=== PATIENT | female | born 1935 | race Caucasian/White ===

== ENCOUNTER 2020-06-27 17:01 | Inpatient (IN) | payer MEDICARE ==
[~2020-06-27 17:01] MED LIST: Iopamidol-370 76% 500 ML 1 ML ONE
[2020-06-27] MEDS ORDERED: Lorazepam 2 MG/ML VIAL ONE (18:09)
[2020-06-27 19:16] LABS: #Monocytes 1.1 thou/uL (0.11-0.59); #Neutrophils 8.8 thou/uL (1.40-6.50); %Basophils 0.3 % (0.0-1.0); %Lymphocytes 9.2 % (21.0-51.0); %Monocytes 10.3 % (0.0-10.0); %Neutrophils 80.2 % (42.0-75.0); Hemoglobin 8.3 g/dL (12.0-16.0); Mean Corpuscular HGB CONC 28.8 g/dL (32.0-36.0); Mean Corpuscular Hemoglobin 21.2 pg (27.0-31.0); Mean Corpuscular Volume 73.7 fL (78.0-98.0); Mean Platelet Volume 10.8 fL (7.4-10.4); Platelet Count 231 thou/uL (130-400); RBC Distribution Width 19.4 % (11.5-14.5); White Blood Cell (WBC) Count 10.9 thou/uL (4.8-10.8)
[2020-06-27 19:22] LABS: INR-International Normal Ratio 1.5; PTT 33.4 sec (22.9-36.1); Prothrombin Time 18.3 sec (12.0-14.7)
[2020-06-27 19:28] LABS: ALT (SGPT) 28 U/L (8-55); AST (SGOT) 43 U/L (5-34); Albumin 2.7 g/dL (3.4-4.8); Alkaline Phosphatase 68 U/L (40-110); Anion Gap 13 mmol/L (10-20); BUN (Urea Nitrogen) 22 mg/dL (9.8-20.1); Bilirubin, Total 1.2 mg/dL (0.2-1.2); Calc. Creatinine Clearance 0 mL/min (70-130); Calcium 8.1 mg/dL (7.8-10.44); Carbon Dioxide 34 mmol/L (23-31); Chloride 90 mmol/L (98-107); Globulin 3.3 g/dL (2.4-3.5); Glucose 127 mg/dL (83-110); Potassium 4.4 mmol/L (3.5-5.1); Sodium 133 mmol/L (136-145)
[2020-06-27 19:34] LABS: Anisocytosis MODERATE=16-30 cells (100X) (0-5/hpf); Hypochromia MODERATE=16-30 cells (100X) (0-5/hpf); MDiff Complete? YES; Microcytosis SLIGHT = 6-15 cells (100X) (0-5/hpf); Platelet Morphology Comment Appears Adequate; Polychromasia MODERATE = 3-4 cells (100X) (0-2/hpf); Reflex for Review?? YES; Schistocytes SLIGHT = 2-5 cells (100X) (0-1/hpf); Stomatocytes SLIGHT = 2-5 cells (100X) (0-1/hpf); Target Cells SLIGHT = 2-5 cells (100X) (0-1/hpf); Tear Drops SLIGHT = 2-5 cells (100X) (0-1/hpf)
[2020-06-27 19:51] LABS: CKMB 4.6 ng/mL (0-6.6)
--- NOTE | 2020-06-27 20:02 | CT ---
CT HEAD WITHOUT CONTRAST: INDICATIONS: Fall with injury. History states the patient fell last night and was seen at [facility] with neg ative head CT except for large scalp hematoma. FINDINGS: Ventricles have normal size and position. There is no evidence of intracranial hemorrhage. No mass, e latisha or infarct. There is a large right-sided scalp hematoma with scalp laceration. Numerous tiny gas pockets seen wit hin the scalp on the right. Edema extends over the right face. IMPRESSION: 1. No acute intracranial abnormality. 2. Right scalp hematoma laceration and edema. Injury appears to involve the right parotid gland with heterogeneity of the right parotid and overlying edema. 3. There is also edema seen posterior to the right parotid gland, in the subcutaneous tissues. POS: AGW
--- NOTE | 2020-06-27 20:04 | CT ---
CT FACIAL BONES WITHOUT CONTRAST: Date: 06/27/2020 INDICATION: Fall with injury to face. FINDINGS: Nasal bones appear intact. Orbits appear intact. Paranasal sinuses are aerated. The maxilla appears i ntact. Zygoma are intact. Mandible appears intact. There is subcutaneous edema over the right face with evidence of hematoma on the right lateral to the right mandibular angle. There is edema and haziness surrounding the right parotid glands suggesting parotid injury. Edema extends over the right orbit and extends superiorly. There is a scalp hematoma over the right frontal bone laterally. IMPRESSION: 1. No evidence of facial bone fracture. 2. Right side facial edema and hematoma involving the right scalp and face, and involvement with the right parotid gland. POS: AGW
--- NOTE | 2020-06-27 20:07 | CT ---
CT CERVICAL SPINE: INDICATIONS: Injury. Transfer from [place]. History states the patient fell and was seen in the [facility]. CT from [place] revealed a C7 fracture. FINDINGS: There is a burst type fracture involving the C7 vertebra with involvement of both the anterior and po sterior cortex with posterior retropulsion, measured at 3 mm. There is a jumped facet on the left at C6-C7 with fractures involving the left C6 and C7 facets. Ther e is a fracture involving the transverse process on the left at C7. These fractures involve the lauren en transversarium on the left at C7 and suggest CTA to rule out vertebral artery injury. The retropulsion at C6-C7 effaces the anterior subarachnoid space and abuts the cord, resulting in mi ld central canal stenosis. There is left foraminal stenosis and encroachment due to the fractures at C6-C7. IMPRESSION: 1. Burst type fracture at C7 with loss of height estimated in the 20% range. 2. Mild retropulsion of posterior fragments of C7, as described above. 3. Locked facet at C6-7 on the left. 4. There are associated facet fractures on the left at C6-C7 and there are fractures of the left bellamy sverse process at C7. Involvement of the foramen transversarium on the left at C7 due to these fractu res. Consider CTA to assess vertebral artery injury. Findings were discussed with Dr. Gifford. CODE CR POS: JAMES
[2020-06-27] MEDS ORDERED: Morphine 2 MG/ML VIAL SLOW IVP PRN (20:35)
[2020-06-27] MEDS ORDERED: Ondansetron PF 4 MG/2 ML Vial IVP PRN (20:35)
[2020-06-27] MEDS ORDERED: Dextrose 5% in Water 1,000 ML IV PRN (20:35)
[2020-06-27] MEDS ORDERED: Dextrose 50% Abboject 50 ML SYRINGE SLOW IVP PRN (20:35)
[2020-06-27] MEDS ORDERED: traMADol HCl 50 MG TAB PO PRN ×2 (20:42)
[2020-06-27] MEDS ORDERED: Cyclobenzaprine 10 MG TAB PO PRN (20:42)
--- NOTE | 2020-06-27 21:27 | CT ---
CT arteriogram neck with IV contrast and 3-D imaging HISTORY: Cervical spine fracture. Vascular injury. COMPARISON: CT cervical spine earlier on the same date. FINDINGS: There is good contrast opacification of the aortic arch with normal branching of the great vessels. Calcification within the arterial structures. Good flow into each carotid and vertebral system. Each vertebral and carotid artery is patent without dissection evident. Calcification at the right ca rotid bifurcation results in stenosis of approximately 60% at the origin of the right ICA. No significant stenosis on the left. Each common carotid artery takes a medial, retropharyngeal deviatio n. Inferior most images show patchy infiltrates and interstitial thickening at each lung apex. Small candie unt right pleural fluid partially visualized. Nonenlarged, nonspecific lung is partially visualized within the upper mediastinum. Degenerative changes of the cervical spine and fracture at the C7 level again demonstrated. Flexion t ype injury with locking of the left C6 inferior facet upon the superior margin of the left C7 facet fracture fragment. IMPRESSION : No evidence of acute vascular injury. Atherosclerosis with mild-moderate stenosis at the origin of the right internal carotid artery. C7 fracture better detailed on dedicated CT cervical spine exam. Small right pleural effusion. Parenchymal opacities at the right lung apices could reflect multifocal pneumonitis. Correlate for multifocal viral pneumonitis/COVID.
[2020-06-27 21:32] LABS: CK (CPK) 136 U/L (29-168); Magnesium 1.6 mg/dL (1.6-2.6); Phosphorus 3.5 mg/dL (2.3-4.7)
--- NOTE | 2020-06-27 23:12 | RAD ---
Chest one view HISTORY: Fall. Injury. Preop. FINDINGS: Cardiac silhouette is magnified by projection. Pulmonary vasculature upper limits of normal . Subtle ill-defined groundglass opacities project over each lung, more pronounced at the lower lobes t brown the upper. Mediastinum is midline allowing for slight leftward rotation of the patient with a dual lead left sub clavian cardiac electronic device. No evidence of pneumothorax. Left apex partially obscured by the patient's chin. IMPRESSION : Mild patchy bilateral groundglass infiltrates. Correlate for COVID pneumonitis.
--- NOTE | 2020-06-27 23:41 | CON ---
DATE OF CONSULTATION: HISTORY OF PRESENT ILLNESS: Ms. Boyd is an 84-year-old woman, who was transferred here from [place] emergency department after a fall at home yesterday where she suffered a large right frontotemporal scalp laceration with associated scalp hematoma, but additionally reportedly a left-sided jumped facet at C6-7. Repeat CT scan of the head and neck upon arrival at [facility] Department reveals again no hemorrhage in the cranial vault and a fully jumped facet of C6 upon C7 on the left-hand side with anterior fracture of the C7 vertebral body. At present at bedside, the patient denies any significant radicular symptoms of the left upper extremity, neck, or shoulder. No numbness or weakness. She has full range of motion there. She has chronic radiculopathy of the right upper extremity that is treated conservatively by physician in her home city. The patient has notable facial swelling to the right side of her face in particular around her eye, which she is unable to open secondary to edema there. The scalp laceration has been sutured close at prior emergency department and was very well packed with no active bleeding. Speech is uninhibited. She understand she was previously in [place] and was transferred here for head injury and neck injury. She is on [place] collar. I discussed at length at bedside with both the patient and her son that she unfortunately suffered an unstable injury to the cervical spine and likely need surgical intervention, but given that she is on Xarelto for atrial fibrillation would be to give her some more time. She would benefit by the fact that she continues to be present asymptomatic from her injury, other than some associated neck pain and headache. Plan was discussed with Dr. Parish who is in agreement who will take this day by day and hopefully in a few more days, she will have cleared enough throughout that it would be safe to proceed from a surgical perspective. Hopefully between now and then she remains asymptomatic. We will check in the morning. The patient does not need to be n.p.o. at this time. Job ID: [id number]
[2020-06-27 23:51] VITALS: BMI 28.0
[2020-06-27] MEDS ORDERED: Sodium Phosphate 30 MMOL in Sodium Chloride 0.9% 250 ML 250 ML IVPB SCH (23:59)
[2020-06-27] MEDS ORDERED: Sodium Chloride 0.9% 1,000 ML IV SCH (23:59)
[2020-06-28] MEDS: Acetaminophen 500 MG TAB PO SCH ×6 (00:07→23:31)
[2020-06-28] MEDS: Famotidine 20 MG TAB PO SCH ×3 (00:55→20:52)
[2020-06-28] MEDS: Senokot S 8.6-50 MG TAB PO SCH ×3 (00:56→20:52)
[2020-06-28] MEDS ORDERED: Sodium Phosphate 30 MMOL in Sodium Chloride 0.9% 250 ML 250 ML IVPB SCH (01:00)
[2020-06-28 02:47] LABS: SARS-CoV-2 NAA Rapid Test Not Detected (NotDetected)
--- NOTE | 2020-06-28 03:32 | HP ---
CONSULTS: Neurosurgery, Dr. Parish. REQUESTING ER PHYSICIAN: Dr. Gifford. CHIEF COMPLAINT: Mechanical fall yesterday, neck pain, C6-C7 jumped facet fracture and C7 fracture. HISTORY OF PRESENT ILLNESS: This is an 84-year-old female with past medical history of atrial fibrillation, hypertension, and hypoglycemia, who was a transfer from [facility] for a fall. The patient was seen and evaluated at [place] yesterday evening, but due to weather, the patient was unable to be transferred at that time. The patient had a mechanical fall, in which she does not recall the event. The patient had a large laceration to the scalp which was repaired at [place]. She had a CT of the brain which was negative except for the large scalp hematoma. Cervical spine CT showed a C7 fracture with vertebral body as well as a unilateral jumped facet of C6-C7. The patient's vital signs have been stable. The patient arrived to the emergency room alert and oriented, but just was unable to recall exactly what happened. Labs from [place] showed a WBC of 10.8, hematocrit of 32.7, and a hemoglobin of 9.1. Her flu and COVID were negative. The patient does report having off and on numbness and tingling to the fingers, but this started before her fall. The patient is currently in a well-fitting [place] collar at this time. The patient was given Ativan 1 mg and normal saline 1 L bolus in the emergency room. PAST MEDICAL HISTORY: Atrial fibrillation, hypoglycemia, hypertension, chronic obstructive pulmonary disease, on home oxygen. PAST SURGICAL HISTORY: Denies. SOCIAL HISTORY: Denies drug use, denies alcohol use. The patient stopped smoking approximately one year ago. ALLERGIES: PENICILLIN AND SULFA. CURRENT MEDICATIONS: 1. Flecainide 50 mg b.i.d. 2. Lasix 40 mg once a day. 3. Fluvastatin 40 mg daily. 4. Metoprolol succinate 50 mg b.i.d. 5. Lisinopril 5 mg once a day. 6. Xarelto 20 mg once a day. 7. Vitamin D3, 1000 units daily. 8. Vitamin C 1000 mg daily. REVIEW OF SYSTEMS: A 10-point review of systems is negative unless otherwise indicated in the above HPI. OBJECTIVE: VITAL SIGNS: Blood pressure 121/80, pulse 70, respirations 17, SpO2 of 100% on 2 L nasal cannula, temperature 98.3. GENERAL: An elderly female, awake, alert, in no distress. HEENT: Head is normocephalic, 10 cm laceration to the scalp, sutured at outside hospital, no active bleeding or drainage. Large ecchymoses to right periorbital area, also swelling. Extraocular muscles intact. Ear exam normal, tympanic membranes normal. Normal nose exam. No nasal deformity. No septal hematoma. Airway is intact, midface is stable. Mucous membranes moist. NECK: Cervical [place] collar in place, trachea midline. RESPIRATORY: Good inspiratory and expiratory effort, upper breath sounds clear bilateral, crackles noted in bases bilateral. CARDIOVASCULAR: Irregularly irregular rate, regular rhythm. No murmur, no pedal edema, no JVD. ABDOMEN: Soft, nontender, nondistended. Pelvis is stable. : Ramirez catheter in place with chrissy urine. EXTREMITIES: Left forearm laceration with sutures in place, neurovascularly intact x4, strength 5/5 in all extremities. Bilateral upper extremities with general edema. NEUROLOGIC: GCS 15. No focal deficits. SKIN: Warm, dry, normal color. LABORATORY DATA: WBC 10.9, RBC 3.90, hemoglobin 8.3, hematocrit 28.8, and platelets 231. PT 18.3, INR 1.5, APTT 33.4. Sodium 133, potassium 4.4, chloride 90, carbon dioxide 34, BUN 22, creatinine 1.16, estimated GFR 45, glucose 127, calcium 8.1, phosphorus 3.5, magnesium 1.6, AST 43, ALT 28, alkaline phos 68. Troponin I 0.070. BNP 1704.8, albumin 2.7. DIAGNOSTICS: 1. A 12-lead EKG, impression, atrial fibrillation, heart rate 121, rapid ventricular response. 2. CT angiogram: No evidence of acute vascular injury. Atherosclerosis with laed-hl-kvkdlrgz stenosis at the origin of the right internal carotid artery. C7 fracture better detailed on detailed CT cervical spine exam. Small right pleural effusion. Parenchymal opacities at the right lung apices. Correction at right lung apices, could reflect multifocal pneumonitis, correlate. 3. Brain CT, impression: No acute intracranial abnormality. Right scalp hematoma, laceration and edema. Injury appears to involve the right parotid gland with heterogeneity of the right parotid overlying edema. There is also edema seen posterior to the right parotid gland, in the subcutaneous tissues. 4. Facial bone CT, impression: No evidence of facial bone fracture. Right-sided facial edema and hematoma involving the right scalp and face, and involvement with the right parotid gland. 5. Cervical spine CT exam: Burst type fracture at C7 with loss of height estimated in the 20% range. Mild retropulsion of posterior fragments of C7. Locked facet C6-C7 on the left. There is associated facet fractures on the left at C6-C7 and there are fractures of the left transverse process at C7. Involvement of the foramen transversarium on the left at C7 due to these fractures. CTA was recommended. 6. Chest x-ray, impression: Mild patchy bilateral ground-glass infiltrates. ASSESSMENT: 1. Status post mechanical fall on 06/26/2020. 2. Locked facet C6-C7 on the left. 3. Anterior fracture of the C7 vertebral body. 4. Large right frontotemporal scalp laceration and hematoma. 5. Long-term use of anticoagulant. 6. Hypernatremia. 7. Atrial fibrillation with rapid ventricular response, currently rate controlled. 8. History of hypertension, atrial fibrillation, on Xarelto, hypoglycemia. 9. Left arm laceration, repaired. PLAN: Admit to the surgical floor. Pain control. [place] collar at all times. Replace electrolytes. Repeat labs in the morning. Regular diet as tolerated. Hold patient's Xarelto. The plan was discussed with the attending. We will restart patient's blood pressure medications with hold parameters. Job ID: [id number]
[2020-06-28 05:30] LABS: Anion Gap 13 mmol/L (10-20); BUN (Urea Nitrogen) 22 mg/dL (9.8-20.1); Calc. Creatinine Clearance 50 mL/min (70-130); Calcium 8.2 mg/dL (7.8-10.44); Carbon Dioxide 34 mmol/L (23-31); Chloride 90 mmol/L (98-107); Glucose 107 mg/dL (83-110); Magnesium 2.4 mg/dL (1.6-2.6); Potassium 4.2 mmol/L (3.5-5.1); Sodium 133 mmol/L (136-145)
[2020-06-28 05:53] LABS: Phosphorus 4.4 mg/dL (2.3-4.7)
[2020-06-28 06:07] LABS: #Basophils 0.1 thou/uL (0.0-0.2); #Lymphocytes 1.4 thou/uL (1.20-3.40); #Monocytes 1.1 thou/uL (0.11-0.59); #Neutrophils 6.8 thou/uL (1.40-6.50); %Basophils 0.6 % (0.0-1.0); %Eosinophils 0.1 % (0.0-10.0); %Monocytes 11.7 % (0.0-10.0); %Neutrophils 72.7 % (42.0-75.0); Hemoglobin 8.3 g/dL (12.0-16.0); Mean Corpuscular HGB CONC 28.5 g/dL (32.0-36.0); Mean Corpuscular Hemoglobin 20.6 pg (27.0-31.0); Mean Corpuscular Volume 72.2 fL (78.0-98.0); Mean Platelet Volume 11.6 fL (7.4-10.4); Platelet Count 256 thou/uL (130-400); RBC Distribution Width 19.6 % (11.5-14.5); Red Blood Cell (RBC) Count 4.03 mill/uL (4.20-5.40); White Blood Cell (WBC) Count 9.3 thou/uL (4.8-10.8)
[2020-06-28] MEDS: Metoprolol Tartrate 50 MG TAB PO SCH ×2 (08:08→20:52)
[2020-06-28] MEDS: Gabapentin 100 MG CAP PO SCH ×3 (08:09→20:52)
[2020-06-28] MEDS ORDERED: Polyethylene Glycol 3350 17 GM Packet PO SCH (09:00)
[2020-06-28] MEDS ORDERED: Ascorbic Acid 500 mg Chewable Tablet PO SCH (09:00)
[2020-06-28] MEDS ORDERED: Cholecalciferol 1,000 UNITS (25 MCG) TAB PO SCH (09:00)
[2020-06-28] MEDS ORDERED: Potassium Chloride 10 MEQ TAB PO SCH (09:00)
[2020-06-28] MEDS ORDERED: Furosemide 40 MG TAB PO SCH (09:00)
[2020-06-28] MEDS: Flecainide 50 MG TAB PO SCH ×2 (10:34→20:52)
--- NOTE | 2020-06-28 18:12 | PRG ---
DATE OF SERVICE: 06/28/2020 SUBJECTIVE: Ms. Boyd is an 84-year-old female patient, resting comfortably in bed this morning. The patient is complaining of some head pain at bedside. The patient is on a regular diet and able to feed herself. The patient is on MiraLAX and senna as a bowel regimen. OBJECTIVE: VITAL SIGNS: Temperature 98, pulse 61, respiratory rate 16, O2 saturation 100% on nasal cannula, blood pressure 130/73. GENERAL: Frail, elderly female, awake, alert, in no distress. HEENT: 10 cm laceration to the scalp. Right periorbital ecchymosis. RESPIRATORY: The patient is speaking full sentences. No accessory muscle use. CARDIOVASCULAR: Irregular rate and rhythm. No murmur, edema, or JVD. EXTREMITIES: Left forearm laceration with sutures in place. Sensation intact in all four extremities. Strength 5/5. NEUROLOGIC: GCS 15. LABORATORY DATA: Sodium 133, potassium 4.2, chloride 90, carbon dioxide 34, BUN 22, creatinine 1.4, glucose 107, calcium 8.2, phosphorus 4.4, magnesium 2.4. ASSESSMENT: 1. Status post mechanical fall on 06/26. 2. Locked facet C6-C7. 3. Anterior fracture of C7 vertebral body. 4. Large right frontotemporal scalp laceration and hematoma. 5. Long-term use of anticoagulants. 6. Hypernatremia. 7. Atrial fibrillation with rapid ventricular response. Currently, rate controlled. 8. History of hypertension and atrial fibrillation, on Xarelto, hypoglycemia. 9. Left arm laceration repair. PLAN: Follow up with Dr. Parish. Hold Xarelto. Plan for surgical procedure in the morning if the patient remains asymptomatic and n.p.o. at midnight. Remain in [place] collar and spinal precautions. Discussed case with Dr. Damian on morning rounds. He agrees with the plan and assessment. Job ID: [id number] MTDD
[2020-06-28 20:43] VITALS: BP 131/69; TEMP 97.7
[2020-06-29] MEDS ORDERED: Amiodarone 150 MG/3 ML VIAL ONE (01:26)
[2020-06-29] MEDS ORDERED: EPINEPHrine 1 MG/10 ML Abboject SYRINGE ONE (01:26)
[2020-06-29] MEDS ORDERED: Sodium Bicarb 50 MEQ/50 ML Abboject 8.4% SYRINGE ONE (01:26)
--- NOTE | 2020-06-29 05:28 | PRG ---
DATE OF SERVICE: 06/28/2020 I am seeing Ms. Boyd today after admission last night following a fall at home in [place] with cervical spine fracture and large scalp laceration. She reports this morning that overall her pain level has diminished quite a bit. She feels much better, although, she is starting to experience some left-sided shoulder pains from time to time. She wears her collar which is an [place]. I do not think this is going to be sufficient for the time being and prefer Ashly Mccormick will put the order in the chart for this specifically and this needs to be on at all times. I discussed with her trying to plan out a surgery day, which for the time being, we will hold off given her Eliquis. We will discuss some more with Dr. Parish today and try to get a more concrete timeline going forward. The patient is able to participate with physical therapy and occupational therapy. She is able to ambulate as long as she is comfortable and as long as the collar stays on. No lifting over 10 pounds. Job ID: [id number]
--- NOTE | 2020-06-29 05:34 | DIS ---
DATE OF ADMISSION: 06/27/2020 DATE OF DISCHARGE: 06/29/2020 SUMMARY DATE OF : 06/29/2020. ADMISSION DIAGNOSES: 1. Status post ground-level fall. 2. C6-C7 jumped facet with C7 burst-type fracture. 3. C7 transverse process fracture. CONSULTATION: Neurosurgery, Dr. Parish. PROCEDURES: None. SUMMARY: The patient is an 84-year-old woman, who was brought to our facility from the [facility] after a ground-level fall. Unfortunately, due to extreme weather, the patient was unable to be transported to our facility immediately. She arrived almost 24 hours later, at which time she underwent reevaluation to include repeat head, C-spine, and neck CTA, which showed the above injuries. Of note, the CTA did not show any vascular injury. The patient had no neuro deficit when she arrived, and due to her flecainide and Xarelto use, surgical intervention was delayed. The patient was admitted to the surgical floor where she worked with Physical and Occupational Therapy. She was able to tolerate a diet and feed herself. She remained neurovascularly intact. The night of her passing, her son was in the room staying with her when he alerted the nurses that he felt that the patient had "taken her last breath." This activated a code green that very shortly after that was upgraded to a code blue. The patient had approximately 30 minutes of chest compressions and multiple rounds of epinephrine and sodium bicarb. The patient at some point during her code was intubated. As the resuscitation team was about to efforts, the son asked that the team stop compressions. The patient did by report almost at that time regain pulse and had a blood pressure. The patient was transferred to the critical care unit where the son expressed that she no longer have resuscitative efforts done as he knew that she has been down for quite some time. I was eventually notified and arrived as she got to the critical care unit. At that point, it appeared that the epinephrine that she had been given during her resuscitation was starting to wear off as her heart rate slowly declined into an agonal rhythm. Myself and the charge nurse once again spoke with the son, who confirmed that he wanted no further efforts to prolong her life. We allowed him to be at bedside and she passed shortly thereafter. The son was offered spiritual care, which he declined. He just asked for time to be with his mother and to notify his siblings. Job ID: [id number]
--- NOTE | 2020-06-29 08:46 | RAD ---
Exam: Chest one view HISTORY:Fall. Preoperative exam. Intubated patient. Comparison: 06/27/2020 at 10:57 PM FINDINGS: Lines and tubes: There is evidence of endotracheal tube, nasogastric tube and left-sided transvenous pacemaker. Cardiac silhouette:Upper normal heart size. Aorta: Atherosclerosis Pulmonary vessels: Normal Costophrenic angles: Small bilateral effusions LUNGS: Worsening multi focal interstitial and alveolar opacities. Pneumothorax: None Osseous abnormalities: None IMPRESSION: 1. Lines and tubes as above 2. Worsening of multifocal interstitial and alveolar opacities. Correlate for developing pneumonia or heart failure.
--- NOTE | 2020-06-29 08:48 | PQF ---
CLINICAL DOCUMENTATION CLARIFICATION FORM: Dear ALLEY Anderson Date: 06-29-20 Please exercise your independent, professional judgment in responding to the clarification form. Clinical indicators are provided on the bottom of this form for your review. Please check appropriate box(es): [ ] Chronic Respiratory Failure only [ ] with Hypoxia [ ] with Hypercapnia [ ] COPD no Respiratory Failure [ ] Other diagnosis [ X ] Unable to determine For continuity of documentation, please document condition throughout progress notes and discharge summary. Thank You. To be completed by CDI/Coding staff for physician review: CLINICAL INDICATORS - SIGNS / SYMPTOMS / LABS / RESULTS AND LOCATION IN MR ED: *RR 15-24 *O2 SAT 95-100% on 2LNC RISK FACTORS / RESULTS AND LOCATION IN MR 2.16 H&P ([facility] *Chronic Obstructive Pulmonary Disease *stopped smoking approximately one year ago *On home oxygen TREATMENTS / RESULTS AND LOCATION IN Care Item: RT: Oxygen: 2.15 2L NC 2.16 3L NC CDS Signature: Samina Walton RN, CCDS Phone #: [phone] [email or web address] This is a permanent part of the Medical Record [facility]
--- NOTE | 2020-06-29 09:09 | PQF ---
CLINICAL DOCUMENTATION CLARIFICATION FORM: Dear ALLEY Anderson Date: 06-29-20 Please exercise your independent, professional judgment in responding to the clarification form. Clinical indicators are provided on the bottom of this form for your review. Please check appropriate box(es): [ ] ND type 2 w/ demand ischemia due to fall [ ] Elevated Troponin insignificant lab value [ ] Other diagnosis [ ] Unable to determine For continuity of documentation, please document condition throughout progress notes and discharge summary. Thank You. To be completed by CDI/Coding staff for physician review: CLINICAL INDICATORS - SIGNS / SYMPTOMS / LABS / RESULTS AND LOCATION IN ED: *Transferred from [facility] delay in transfer due to weather * Elevation of troponin likely d/t demand of the situation LABS: Troponin I 1.15 0.070 RISK FACTORS / RESULTS AND LOCATION IN ED: 4 INCH LACERATION TO SCALP S/P FALL, STATES SHE HIT HEAD ON A CHAIR WHEN SHE FELL C7 FX w/ vertebral body C6-C7 unilateral jump facet TREATMENTS / RESULTS AND LOCATION IN Care Item: RT: Oxygen: 2.15 2L NC 2.16 3L NC CPOE: *Neurosurgery Consult CDS Signature: Samina Walton RN, CCDS Phone #: [phone] [email or web address] This is a permanent part of the Medical Record [facility]
--- NOTE | 2020-06-29 18:32 | EKG ---
Test Reason : STAT Blood Pressure : / mmHG Vent. Rate : 093 BPM Atrial Rate : 227 BPM P-R Int : 000 ms QRS Dur : 174 ms QT Int : 422 ms P-R-T Axes : 000 -76 085 degrees QTc Int : 524 ms Atrial fibrillation with premature ventricular or aberrantly conducted complexes Left axis deviation Right bundle branch block Inferior infarct , age undetermined Anterolateral infarct (cited on or before 27-JUN-2020) Abnormal ECG When compared with ECG of 27-JUN-2020 17:53, (Unconfirmed) Right bundle branch block has replaced Non-specific intra-ventricular conduction block Questionable change in initial forces of Anterolateral leads Confirmed by PATRICIA BIRMINGHAM, DR. Hardin ([id number]) on 06/29/2020 6:31:52 PM Referred By: LISHA Confirmed By:DR. Lashawn GOMEZ MD
--- NOTE | 2020-07-02 15:53 | EKG ---
Test Reason : Blood Pressure : / mmHG Vent. Rate : 121 BPM Atrial Rate : 084 BPM P-R Int : 000 ms QRS Dur : 134 ms QT Int : 326 ms P-R-T Axes : 000 -26 150 degrees QTc Int : 462 ms Atrial fibrillation with rapid ventricular response Non-specific intra-ventricular conduction block Possible Anterolateral infarct , age undetermined Abnormal ECG Confirmed by BLAINE BERNAL ([id number]), purchase request editor SREEDHAR CASTELLANOS ([id number]) on 07/02/2020 3:53:01 PM Referred By: Confirmed By:BLAINE BERNAL
--- NOTE | 2020-07-05 08:21 | PQF ---
CLINICAL DOCUMENTATION CLARIFICATION FORM: Dear ALLEY Anderson Date: 06-29-20 Please exercise your independent, professional judgment in responding to the clarification form. Clinical indicators are provided on the bottom of this form for your review. Please check appropriate box(es): [ ] GA type 2 w/ demand ischemia due to fall [ ] Elevated Troponin insignificant lab value [ ] Other diagnosis [ ] Unable to determine For continuity of documentation, please document condition throughout progress notes and discharge summary. Thank You. To be completed by CDI/Coding staff for physician review: CLINICAL INDICATORS - SIGNS / SYMPTOMS / LABS / RESULTS AND LOCATION IN ED: *Transferred from [facility] delay in transfer due to weather * Elevation of troponin likely d/t demand of the situation LABS: Troponin I 1.15 0.070 RISK FACTORS / RESULTS AND LOCATION IN ED: 4 INCH LACERATION TO SCALP S/P FALL, STATES SHE HIT HEAD ON A CHAIR WHEN SHE FELL C7 FX w/ vertebral body C6-C7 unilateral jump facet TREATMENTS / RESULTS AND LOCATION IN Care Item: RT: Oxygen: 2.15 2L NC 2.16 3L NC CPOE: *Neurosurgery Consult CDS Signature: Samina Walton RN, CCDS Phone #: [phone] [email or web address] This is a permanent part of the Medical Record [facility]
== END 2020-06-29 02:47 | disposition expired | DRG 552 ==
LOC: ERS 17:01 → OBSVTOIN 20:44 → SURG B 20:44 → CCU 06-29 02:08
PROVIDERS: ADMIT Surgery; ATTEND Surgery
PROC: 5A12012 Performance of Cardiac Output, Single, Manual (ICD-10-PCS; principal; 2020-06-29)
PROC: 3E033XZ Introduction of Vasopressor into Peripheral Vein, Percutaneous Approach (ICD-10-PCS; 2020-06-29)
DX: S12.500A Unspecified displaced fracture of sixth cervical vertebra, initial encounter for closed fracture (principal); E87.0 Hyperosmolality and hypernatremia; S12.600A Unspecified displaced fracture of seventh cervical vertebra, initial encounter for closed fracture; Z20.822 Contact with and (suspected) exposure to COVID-19; I48.91 Unspecified atrial fibrillation; I10 Essential (primary) hypertension; S01.01XA Laceration without foreign body of scalp, initial encounter; J44.9 Chronic obstructive pulmonary disease, unspecified; S41.112A Laceration without foreign body of left upper arm, initial encounter; W18.30XA Fall on same level, unspecified, initial encounter; Y92.129 Unspecified place in nursing home as the place of occurrence of the external cause; Z99.81 Dependence on supplemental oxygen; Z88.0 Allergy status to penicillin; Z88.2 Allergy status to sulfonamides; Z79.899 Other long term (current) drug therapy; Z79.01 Long term (current) use of anticoagulants
CPT/HCPCS: 36415; 36416; 70450; 70486; 70498; 71045; 72125; 80048; 80053; 82550; 82553; 83735; 83880; 84100; 84484; 85025; 85060; 85610; 85730; 92950; 93005; 93010; 96374; J0171; J0282; J2060; J3475; J3490; J7050; Q9967; U0002